=== PATIENT | male | born 1955 | race Caucasian/White ===

== ENCOUNTER 2025-04-12 13:47 | Inpatient (IN) | payer MEDICARE ==
[~2025-04-12] VITALS: Ht 177.8 cm; Wt 74.6 kg
[2025-04-12 14:18] VITALS: BP 144/93
[2025-04-12] MEDS ORDERED: TraZODone HCl 50 MG Tab PO PRN (14:25)
[2025-04-12] MEDS ORDERED: Magnesium Hydroxide Conc 10 ML UDC PO PRN (14:30)
[2025-04-12] MEDS ORDERED: Bisacodyl 10 MG Supp PR PRN (14:30)
[2025-04-12] MEDS ORDERED: Ondansetron 4 MG TAB PO PRN (14:30)
[2025-04-12] MEDS ORDERED: LISI20 PO (14:51)
[2025-04-12] MEDS ORDERED: Heparin Sodium 5000 Units/ML 1ML MDV IV ONE (15:05)
[2025-04-12] MEDS ORDERED: Heparin Sodium,Porcine/0.5 NS 500 ML IV SCH (15:05)
[2025-04-12 15:06] LABS: BASOPHILS ABSOLUTE AUTO 0.02 K/mm3 (0.00-0.23); BASOPHILS PERCENT AUTO 0 % (0-2); EOSINOPHILS ABSOLUTE AUTO 0.03 K/mm3 (0.00-0.68); EOSINOPHILS PERCENT AUTO 0 % (0-6); Hematocrit 39.4 % (37.0-53.0); Hemoglobin 13.5 g/dL (13.5-17.5); IMMATURE GRAN ABSOLUTE AUTO 0.07 K/mm3 (0.00-0.10); IMMATURE GRAN PERCENT AUTO 1 % (0-1); LYMPHOCYTES ABSOLUTE AUTO 1.89 K/mm3 (0.84-5.20); LYMPHOCYTES PERCENT AUTO 15 % (21-46); MONOCYTES PERCENT AUTO 6 % (4-13); Mean Corpuscular HGB Conc 34.3 g/dL (31.5-36.5); Mean Corpuscular Volume 99 fL (80-100); Mean Platelet Volume 9.5 fL (9.1-12.4); NEUTROPHILS ABSOLUTE AUTO 9.91 K/mm3 (1.96-9.15); NEUTROPHILS PERCENT AUTO 78 % (41-73); Platelet Count 268 K/mm3 (150-400); RDW Coefficient Variation 12.4 % (11.7-14.2); RDW Standard Deviation 45.3 fL (35.1-46.3); Red Blood Cell Count 3.97 M/mm3 (4.30-5.90); White Blood Cell Count 12.72 K/mm3 (4.00-11.30)
[2025-04-12] MEDS ORDERED: Ipratropium/Albuterol SulF 2.5-0.5MG/3 ML Amp INH SCH (15:20)
[2025-04-12 15:22] VITALS: BP 128/96
[2025-04-12] MEDS ORDERED: Mometasone/Formoterol MDI 200/5 mcg 13 GM INH SCH (15:25)
[2025-04-12] MEDS ORDERED: HydrALAZINE HCl 20 MG / ML 1ML Vial IV PRN (15:25)
[2025-04-12 15:27] LABS: Albumin, Blood 3.8 g/dL (3.4-5.0); Albumin/Globulin Ratio 1.4 (0.8-1.8); Bilirubin, Total 0.6 mg/dL (0.1-1.0); Bun/Creatinine Ratio 18.3 (12.0-20.0); Calcium, Blood 8.9 mg/dL (8.5-10.1); Creatinine, Blood 1.04 mg/dL (0.60-1.20); Globulin, Blood 2.7 g/dL (2.2-4.0); Potassium, Blood 3.9 mmol/L (3.5-5.5); Total Protein, Blood 6.5 g/dL (6.4-8.2)
[2025-04-12] MEDS ORDERED: FLUT1DIS5 INH (15:27)
[2025-04-12] MEDS ORDERED: IPRAT-ALBUT 0.5-3 ML INH (15:28)
[2025-04-12 15:48] LABS: Anti-Xa UFH, PHA Monitoring <0.10 IU/mL; International Normalized Ratio 1.03; Prothrombin Time Results 11.3 Sec (9.7-11.5)
--- NOTE | 2025-04-12 17:27 | NUR ---
PT WAS A DIRECT ADMIT FROM DR NELSON'S ADMIT, PT WAS AMBULATORY ACCOMPANIED BY . PT IS ALERT AND ORIENTED X4, PLEASANT AND COOPERATIVE WITH CARES. IV STARTED ON RFA, HEP GTT STARTED WELL, LABS DONE. EKG SHOWED SR WITH BBB ADN PVC, SBP 120-140'S, SATS ABOVE 95% ON RA, AFEBRILE. PT DENIES CHEST PAIN/PRESSURE HAS SOME ONGOING SOB WORSENS WITH EXERTION. INITIAL TROPONIN WAS AT 99. CARDIOLOGY WAS CONSULTED AND IS CURRENTLY IN THE ROOM DISCUSSING PLANS WITH BOTH AND THE PT. PLAN TO DIURESE PT AT THIS TIME, PENDING ECHO AND POSSIBLE ANGIO. DIET RESUMED. NO OTHER ISSUES REPORTED WILL CONTINUE TO MONITOR AND TO REPORT TO ONCOMING SHIFT
[2025-04-12] MEDS ORDERED: Ipratropium/Albuterol SulF 2.5-0.5MG/3 ML Amp INH PRN (17:50)
[2025-04-12] MEDS ORDERED: Empagliflozin 10 MG TAB PO SCH (18:00)
[2025-04-12] MEDS ORDERED: Spironolactone 12.5 MG TAB PO SCH (18:00)
[2025-04-12] MEDS ORDERED: Digoxin 0.125 MG Tab PO SCH (18:00)
[2025-04-12] MEDS ORDERED: Furosemide 10 MG/ML 4ML Vial IV SCH (18:00)
--- NOTE | 2025-04-12 18:55 | NUR ---
HEART FAILURE EDUCATION DISCLOSED WITH THE PT. HANDOUTS PROVIDED. PT VERBALIZED UNDERSTANDING
[2025-04-12 20:23] VITALS: BP 126/98
[2025-04-12] MEDS ORDERED: Famotidine 20 MG Tab PO SCH (21:00)
[2025-04-12] MEDS ORDERED: Lactobacil 2-S.Thermo-Bifido 1 1 Cap PO SCH (21:00)
[2025-04-12] MEDS ORDERED: PSYLLIUM FIBER0.4 GM PO (22:04)
[2025-04-12] MEDS ORDERED: Psyllium 1 EA Pack PO SCH (22:20)
[2025-04-12] MEDS ORDERED: Dose Adjust by Pharmacy XX STA (22:48)
[2025-04-12 23:30] VITALS: BP 120/85
[2025-04-13] VITALS (13 sets, daily range): BP systolic 108–135; BP diastolic 73–106
--- NOTE | 2025-04-13 05:57 | NUR ---
SHIFT SUMMARY PT IS A&O X4, ABLE TO MAKE NEEDS KNOWN, MOVING ALL EXTREMITIES WITH PURPOSE, USING CALL LIGHT APPROPRIATELY, EDUCATED TO CALL BEFORE AMBULATING, PT REPORTISTIONING SELF IN BED. CONTINUOUS SPO2, SPO2 GREATER THAN 90% RA, LUNGS SOUND CLEAR T/O, PT DENIES SOB AT THIS TIME, NO SIGNS OF RESPIRATORY DISTRESS NOTED CONTINUOUS TELE MONITORING, HR 80-90 S, PT DENIES CHEST P/P, PULSES PRESENT T/O, BP STABLE WITH MAP GREATER THAN 65. BOWEL TONES PRESENT IN ALL 4Q, PT DENIES FEELINGS OF NAUSAE OR CONSTIPATION. PT VOIDING IND TO URINAL, URINE YELLOW IN COLOR. BED LOWEST POSITION, CALL LIGHT IN REACH, AWAITING TO GIVE REPORT TO ONCOMING RN.
[2025-04-13 06:26] LABS: BASOPHILS ABSOLUTE AUTO 0.04 K/mm3 (0.00-0.23); BASOPHILS PERCENT AUTO 0 % (0-2); EOSINOPHILS ABSOLUTE AUTO 0.08 K/mm3 (0.00-0.68); EOSINOPHILS PERCENT AUTO 1 % (0-6); Hematocrit 40.3 % (37.0-53.0); Hemoglobin 13.6 g/dL (13.5-17.5); IMMATURE GRAN ABSOLUTE AUTO 0.04 K/mm3 (0.00-0.10); IMMATURE GRAN PERCENT AUTO 0 % (0-1); LYMPHOCYTES ABSOLUTE AUTO 2.24 K/mm3 (0.84-5.20); LYMPHOCYTES PERCENT AUTO 22 % (21-46); MONOCYTES ABSOLUTE AUTO 0.83 K/mm3 (0.16-1.47); MONOCYTES PERCENT AUTO 8 % (4-13); Mean Corpuscular HGB 32.9 pg (26.0-34.0); Mean Corpuscular HGB Conc 33.7 g/dL (31.5-36.5); Mean Corpuscular Volume 98 fL (80-100); Mean Platelet Volume 9.3 fL (9.1-12.4); NEUTROPHILS ABSOLUTE AUTO 6.98 K/mm3 (1.96-9.15); NEUTROPHILS PERCENT AUTO 68 % (41-73); Platelet Count 286 K/mm3 (150-400); RDW Coefficient Variation 12.4 % (11.7-14.2); Red Blood Cell Count 4.13 M/mm3 (4.30-5.90); White Blood Cell Count 10.21 K/mm3 (4.00-11.30)
[2025-04-13 06:44] LABS: Albumin, Blood 3.6 g/dL (3.4-5.0); Albumin/Globulin Ratio 1.2 (0.8-1.8); Bilirubin, Total 0.6 mg/dL (0.1-1.0); Bun/Creatinine Ratio 14.7 (12.0-20.0); Calcium, Blood 8.6 mg/dL (8.5-10.1); Creatinine, Blood 1.16 mg/dL (0.60-1.20); Globulin, Blood 2.9 g/dL (2.2-4.0); Total Protein, Blood 6.5 g/dL (6.4-8.2)
[2025-04-13] MEDS ORDERED: Dose Adjust by Pharmacy XX STA (06:50)
[2025-04-13] MEDS ORDERED: Heparin Sodium 1000 Units/ML 10ML MDV ONE ×2 (08:13→11:34)
[2025-04-13] MEDS ORDERED: NS 250 ML IV ONE (08:13)
[2025-04-13] MEDS ORDERED: Nitroglycerin 2 MG/20 ML BTL ONE (08:13)
[2025-04-13] MEDS ORDERED: NS 1,000 ML IV ONE ×2 (08:13→10:22)
[2025-04-13] MEDS ORDERED: NiCARdipine HCL 1,000 MCG/5 ML SYR ONE (08:13)
[2025-04-13] MEDS ORDERED: Enoxaparin 40 MG/0.4 ML SYR SC SCH (09:00)
[2025-04-13] MEDS ORDERED: Psyllium 1 EA Pack PO SCH (09:00)
[2025-04-13] MEDS ORDERED: Furosemide 10 MG/ML 4ML Vial IV SCH (09:00)
[2025-04-13] MEDS ORDERED: FentaNYL Citrate 50 MCG/ML 2 ML Injection ONE (10:21)
[2025-04-13] MEDS ORDERED: Midazolam HCl 1MG / ML 2ML Vial ONE (10:22)
--- NOTE | 2025-04-13 11:09 | NUR ---
PT TO LEFT PU FOR ANGIO VIA HOSPITAL BED. PRESENT AND GOING TO WAIT IN HC WAITING ROOM.
--- NOTE | 2025-04-13 11:56 | NUR ---
UPDATE PT BACK FROM PROCEDURE. TR BAND IN PLACE OF RIGHT RADIAL SITE WITH ARMBOARD. RADIAL SITE C/D/I WITH NO HEMATOMA OR TENDERNESS NOTED. PT EDUCATED ON POST PROCEDURAL VITALS AND CARE OF RADIAL SITE. PT VERBALIZED UNDERSTANDING.
[2025-04-13] MEDS ORDERED: Metoprolol Succinate 25 MG TABCR PO SCH (12:30)
[2025-04-13] MEDS ORDERED: Atorvastatin 10 MG Tab PO SCH (13:55)
[2025-04-13] MEDS ORDERED: Potassium Chloride 10 Meq Tablet SA PO SCH (14:00)
[2025-04-13] MEDS ORDERED: Aspirin 81 MG TabEC PO SCH (14:00)
--- NOTE | 2025-04-13 14:37 | NUR ---
UPDATE PT ATTEMPTING FALL ASLEEP, BUT REPORTS WAKING GASPING FOR AIR. SATS BRIEFLY DOWN TO 89. 2L NC APPLIED. PT CURRENTLY RESTING COMFORTABLY IN BED WITH 2L NC WITH SATS >90%.
[2025-04-13] MEDS ORDERED: Furosemide 10 MG / ML 2ML Vial IV ONE (19:00)
--- NOTE | 2025-04-13 19:41 | NUR ---
SHIFT SUMMARY PT A/OX4 AND COOPERATIVE OF CARE. PT ABLE TO EXPRESS NEEDS AND CALLS APPROPIATE. PT INDEPENDENT IN BED AND ROOM, TOLERATED WELL. PT VSS THROUGHOUT SHIFT. PT HAD SATS BRIEFLY IN 80'S, 2L NC APPLIED. PT REPORTED EASIER TO BREATH WHILE HE SLEPT WITH 2L NC APPLIED. PT HAD ANGIO DONE TODAY, SEE PROCEDURAL NOTES. RIGHT RADIAL SITE RECOVERED AT ROUGHLY 1430, SITE C/D/I WITH TEGADERM IN PLACE. ARM BOARD IN PLACE WELL.
[2025-04-13] MEDS ORDERED: Atorvastatin 40 MG Tab PO SCH (21:00)
[2025-04-13] MEDS ORDERED: Sacubitril/Valsartan 24 MG-26 MG Tab PO SCH (21:00)
[2025-04-14 01:03] VITALS: BP 99/72
[2025-04-14 04:02] VITALS: BP 101/85
--- NOTE | 2025-04-14 04:34 | NUR ---
SHIFT SUMMARY NO ACUTE EVENTS OVERNIGHT. VSS ON RA-2LNC THROUGHOUT NIGHT. PT WAS GIVEN PRN TRAZODONE FOR SLEEP WHICH WORKED VERY WELL, PT WAS ABLE TO SLEEP THE ENTIRE NIGHT. PT STATES HE DID NOT HAVE ANY EPISODES WHERE HE WOULD WAKE UP GASPING FOR AIR. DIURETICS GIVEN WITH GREAT EFFECT, SEE CHART FOR STRICT I&Os. ON TELE NSR 80s-90s. ON RA PT DIPS BELOW 90%, ON 2LNC PT REMAINS >92%. NO FURTHER QUESTIONS OR CONCERNS AT THIS TIME. WILL CONTINUE WITH PLAN OF CARE.
[2025-04-14 05:01] LABS: Hematocrit 42.5 % (37.0-53.0); Hemoglobin 14.8 g/dL (13.5-17.5); Mean Corpuscular HGB 33.9 pg (26.0-34.0); Mean Corpuscular HGB Conc 34.8 g/dL (31.5-36.5); Mean Corpuscular Volume 97 fL (80-100); Mean Platelet Volume 9.4 fL (9.1-12.4); Platelet Count 266 K/mm3 (150-400); RDW Coefficient Variation 12.1 % (11.7-14.2); RDW Standard Deviation 43.4 fL (35.1-46.3); Red Blood Cell Count 4.37 M/mm3 (4.30-5.90); White Blood Cell Count 10.05 K/mm3 (4.00-11.30)
[2025-04-14 05:40] LABS: Anion Gap 12 mmol/L (3-11); Blood Urea Nitrogen 22 mg/dL (8-24); Bun/Creatinine Ratio 21.4 (12.0-20.0); CHOL/HDL RATIO 2.8; CO2, Blood 24 mmol/L (21-32); Calcium, Blood 8.4 mg/dL (8.5-10.1); Chloride, Blood 96 mmol/L (98-108); Cholesterol 205 mg/dL (50-200); Creatinine, Blood 1.03 mg/dL (0.60-1.20); Glomerular Filtration Rate 78 (60-); Glucose, Blood 97 mg/dL (70-99); HDL Cholesterol 72 mg/dL (>39); LDL/HDL RATIO 1.4; Low Density Lipoprotein Chol 102 mg/dL (0-110); Potassium, Blood 4.2 mmol/L (3.5-5.5); Sodium, Blood 128 mmol/L (136-145); Triglycerides 157 mg/dL (30-160); Very Low Density Lipoprot Chol 31 mg/dL (6-32)
[2025-04-14 08:50] VITALS: BP 100/72
[2025-04-14] MEDS ORDERED: ASPI81CH PO (10:04)
[2025-04-14] MEDS ORDERED: Crestor40 MG PO (10:07)
[2025-04-14] MEDS ORDERED: DIGOX125 MC1 PO (10:07)
[2025-04-14] MEDS ORDERED: FURO40 PO (10:08)
[2025-04-14] MEDS ORDERED: PEPCID20 MG PO (10:08)
[2025-04-14] MEDS ORDERED: JARDIANCE10 MG PO (10:08)
[2025-04-14] MEDS ORDERED: METO25ER PO (10:09)
[2025-04-14] MEDS ORDERED: POTA10T PO (10:09)
[2025-04-14] MEDS ORDERED: ENTRESTO 24 MG1 EACH PO (10:09)
[2025-04-14] MEDS ORDERED: SPIR25 PO (10:10)
[2025-04-14] MEDS ORDERED: TRAZ50 PO (10:10)
--- NOTE | 2025-04-14 10:53 | NUR ---
DISCHARGE UPDATE DIACHARGE PACKET GONE OVER WITH PT AND PT AT 1040. PT DISCHARGED AT 1055 VIA WHEELCHAIR AND ON RA. PT MILTON TO TRANSFER TO AND FROM WHEELCHAIR ON HIS OWN, TOLERATED WELL. PERSONAL BELONGINGS AND DISCHARGE PACKET WITH PT AT TIME OF DISCHARGE. RADIAL SITE C/D/I.
[2025-04-14] MEDS ORDERED: Furosemide 40 MG Tab PO SCH ×2 (14:00)
[2025-04-14] MEDS ORDERED: Atorvastatin 10 MG Tab PO SCH (21:00)
[2025-04-14] MEDS ORDERED: Metoprolol Succinate 25 MG TABCR PO SCH (21:00)
[2025-04-15] MEDS ORDERED: Furosemide 40 MG Tab PO SCH (09:00)
== END 2025-04-14 10:50 | disposition home or self-care (01) | DRG 286 ==
LOC: PCU 13:47
PROVIDERS: Internal Medicine Cardiovascular Disease; ADMIT Hospitalist
PROC: 4A023N7 Measurement of Cardiac Sampling and Pressure, Left Heart, Percutaneous Approach (ICD-10-PCS; principal; 2025-04-13)
PROC: B2111ZZ Fluoroscopy of Multiple Coronary Arteries using Low Osmolar Contrast (ICD-10-PCS; 2025-04-13)
DX: I11.0 Hypertensive heart disease with heart failure (principal); I50.21 Acute systolic (congestive) heart failure; E87.1 Hypo-osmolality and hyponatremia; I42.0 Dilated cardiomyopathy; J44.89 Other specified chronic obstructive pulmonary disease; F17.210 Nicotine dependence, cigarettes, uncomplicated; E78.5 Hyperlipidemia, unspecified; I34.0 Nonrheumatic mitral (valve) insufficiency; I27.20 Pulmonary hypertension, unspecified; I25.10 Atherosclerotic heart disease of native coronary artery without angina pectoris; R91.8 Other nonspecific abnormal finding of lung field; I25.2 Old myocardial infarction; R09.89 Other specified symptoms and signs involving the circulatory and respiratory systems; J43.9 Emphysema, unspecified; R91.1 Solitary pulmonary nodule; R60.0 Localized edema; M54.2 Cervicalgia; R06.02 Shortness of breath
CPT/HCPCS: 36415; 71260; 76937; 80048; 80053; 80061; 83735; 83880; 84484; 85025; 85027; 85347; 85379; 85520; 85610; 85730; 93306; 93458; 93571; 94640; 94664; 94762; 99152; 99153; A9270; C1769; C1894; J1644; J1938; J2250; J3010; J7030; J7050; Q9967